=== PATIENT | male | born 1955 | race Caucasian/White ===

== ENCOUNTER 2018-10-19 10:59 | Outpatient (CLI) | payer OTHER, SELFPAY ==
--- NOTE | 2018-10-19 15:12 | DI.RAD_ITS ---
SYMPTOM/DIAGNOSIS: RIGHT HAND PAIN M79.641 RIGHT HAND: Three views. No priors There are mild changes of osteoarthritis in the right hand. The findings are most marked at the DIP joints of the index and middle fingers. No acute fracture or dislocation is seen. No lytic or sclerotic lesion is identified. The soft tissues are grossly unremarkable. IMPRESSION: Mild osteoarthritis of the right hand.
--- NOTE | 2018-10-19 15:12 | DI.RAD_ITS ---
SYMPTOM/DIAGNOSIS: LEFT HAND PAIN M79.642 LEFT HAND: Three views. No priors. There are mild changes of osteoarthritis in the hand. The findings are most marked at the first carpal metacarpal joint and the distal interphalangeal joints of the index and ring fingers. No acute fracture or dislocation, lytic or sclerotic lesion seen. There is a well corticated osseous density at the radial aspect of the base of the proximal phalanx of the left middle finger which likely reflects an old injury. The soft tissues are unremarkable. IMPRESSION: Mild osteoarthritis of the left hand.
--- NOTE | 2018-10-19 15:12 | DI.RAD_ITS ---
SYMPTOM/DIAGNOSIS: RIGHT KNEE PAIN RIGHT KNEE: Three views. No priors. Mild periarticular spurring is seen in the posterior patella. The articular surfaces are otherwise maintained. There is an enthesophyte at the superior aspect of the patella. There is a small joint effusion. There are well corticated osseous densities seen in the infrapatellar region of the joint and these may represent loose bodies. IMPRESSION: 1. Mild degenerative changes of the right knee. 2. Question of loose bodies within the joint space.
== END 2018-10-19 11:19 ==
PROVIDERS: PCP Nurse Practitioner; Visit Provider Nurse Practitioner
DX: M79.641 Pain in right hand (principal); M19.041 Primary osteoarthritis, right hand; M79.642 Pain in left hand; M19.042 Primary osteoarthritis, left hand; M25.561 Pain in right knee; M25.461 Effusion, right knee; M17.11 Unilateral primary osteoarthritis, right knee
CPT/HCPCS: 73562; 73130

== ENCOUNTER 2018-11-20 06:58 | Outpatient (CLI) | payer OTHER, SELFPAY ==
[2018-11-20 07:45] LABS: HCT 42.4 % (40.0-50.0); HGB 14.2 g/dL (13.5-17.5); Mean Corp. HGB Concentration 33.5 g/dL (32.0-36.0); Mean Corpuscular Hemoglobin 29.3 pg (27.0-33.0); Mean Corpuscular Volume 87.4 fL (80-95); Mean Platelet Volume 10.4 fL (8.0-11.0); Platelet Count 200 x1000/uL (130-400); RBC 4.85 m/cumm (4.50-6.00); RBC Distribution Width 12.8 % (11.8-14.1); White Blood Cell Count 5.74 k/cumm (4.4-10.8)
[2018-11-20 08:21] LABS: COMMENT (LAB VIEW ONLY) 173.45 mg/dL; Microalb ug/mg Crea 7.9 ug/mg Cr
[2018-11-20 08:30] LABS: ALT 32 U/L (12-78); AST 15 U/L (15-37); Albumin 4.1 g/dL (3.4-5.0); Alkaline Phosphatase 58 U/L (46-116); Anion Gap 9.1 mmol/L (3-11); BUN 22 mg/dL (7-18); Bilirubin, Total 0.6 mg/dL (0.2-1.0); CO2 27.9 mmol/L (21.0-32.0); CREATININE 1.49 mg/dL (0.70-1.30); Calcium 9.2 mg/dL (8.5-10.1); Chloride 104 mmol/L (98-107); Cholesterol 182 mg/dL (50-200); Estimated GFR 47.95 (mL/min/1.73m2); Glucose 179 mg/dL (70-100); HDL Cholesterol 29 mg/dL (40-60); LDL CHOLESTEROL 94 mg/dL (<100); Potassium 4.5 mmol/L (3.5-5.1); Sodium 141 mmol/L (136-145); TSH (W/Ref FT4) 3.34 uIU/mL (0.358-3.74); Total Protein 7.1 g/dL (6.4-8.2); Triglyceride 315 mg/dL (30-150)
== END 2018-11-20 07:18 ==
PROVIDERS: PCP Nurse Practitioner; Visit Provider Nurse Practitioner
DX: E11.9 Type 2 diabetes mellitus without complications (principal); E78.00 Pure hypercholesterolemia, unspecified; I10 Essential (primary) hypertension; R79.9 Abnormal finding of blood chemistry, unspecified
CPT/HCPCS: 36415; 80053; 80061; 83721; 85027; 82043; 82570; 84443

== ENCOUNTER 2019-01-12 08:44 | Outpatient (CLI) | payer OTHER, SELFPAY ==
[2019-01-12 09:36] LABS: Hemoglobin A1C 8.6 % (4.5-6.2)
[2019-01-12 10:02] LABS: Anion Gap 10.4 mmol/L (3-11); BUN 21 mg/dL (7-18); CO2 25.6 mmol/L (21.0-32.0); CREATININE 1.35 mg/dL (0.70-1.30); Chloride 102 mmol/L (98-107); Estimated GFR 53.73 (mL/min/1.73m2); Glucose 265 mg/dL (70-100); Potassium 4.7 mmol/L (3.5-5.1); Sodium 138 mmol/L (136-145)
[2019-01-12 10:05] LABS: ESR 11 MM/HR (1-20)
[2019-01-13 11:48] LABS: Rheumatoid Factor <8 IU/mL (<12.5)
[2019-01-13 12:28] LABS: Lyme Ab w Rflx to Lyme Confirm Negative
[2019-01-13 14:46] LABS: ANA Interpretation Positive (NEGAT); ANA Titer Pattern 1:160 Speckled
[2019-01-14 07:27] LABS: Vitamin D 25 Total 24.6 ng/ml (30-100)
== END 2019-01-12 09:04 ==
PROVIDERS: PCP Nurse Practitioner; Visit Provider Nurse Practitioner
DX: E11.9 Type 2 diabetes mellitus without complications (principal); I10 Essential (primary) hypertension; M25.50 Pain in unspecified joint; R25.3 Fasciculation; R53.1 Weakness; R53.83 Other fatigue; E11.40 Type 2 diabetes mellitus with diabetic neuropathy, unspecified; R20.2 Paresthesia of skin
CPT/HCPCS: 36415; 80048; 82306; 85652; 86341; 83036; 83735; 86038; 86431; 86618

== ENCOUNTER 2019-01-27 15:27 | Outpatient (CLI) | payer OTHER, SELFPAY ==
[2019-01-29 09:15] LABS: Cyclic Citrullinated Peptide <2.5 U/mL (<5.0)
== END 2019-01-27 15:47 ==
PROVIDERS: PCP Nurse Practitioner; Visit Provider Nurse Practitioner
DX: E11.40 Type 2 diabetes mellitus with diabetic neuropathy, unspecified (principal); E11.9 Type 2 diabetes mellitus without complications
CPT/HCPCS: 36415; 86200; 86337

== ENCOUNTER 2019-06-15 07:46 | Outpatient (CLI) | payer OTHER, SELFPAY ==
[2019-06-15 08:45] LABS: Anion Gap 7.5 mmol/L (3-11); BUN 18 mg/dL (7-18); CO2 27.5 mmol/L (21.0-32.0); CREATININE 1.39 mg/dL (0.70-1.30); Calcium 8.9 mg/dL (8.5-10.1); Chloride 105 mmol/L (98-107); Estimated GFR 51.95 (mL/min/1.73m2); Glucose 191 mg/dL (70-100); Potassium 4.7 mmol/L (3.5-5.1); Sodium 140 mmol/L (136-145)
== END 2019-06-15 08:06 ==
PROVIDERS: PCP Nurse Practitioner; Visit Provider Nurse Practitioner
DX: E11.9 Type 2 diabetes mellitus without complications (principal)
CPT/HCPCS: 36415; 80048

== ENCOUNTER 2020-08-24 05:02 | Outpatient (CLI) | payer OTHER, SELFPAY ==
[2020-08-24 09:08] LABS: ALT 29 U/L (16-63); AST 17 U/L (15-37); Albumin 4.4 g/dL (3.4-5.0); Alkaline Phosphatase 54 U/L (46-116); Anion Gap 7.3 mmol/L (3-11); BUN 20 mg/dL (7-18); Bilirubin, Total 0.6 mg/dL (0.2-1.0); CO2 28.7 mmol/L (21.0-32.0); CREATININE 1.54 mg/dL (0.70-1.30); Calculated LDL 82 mg/dL (<100); Chloride 104 mmol/L (98-107); Cholesterol 177 mg/dL (<200); Glucose 189 mg/dL (74-106); HDL Cholesterol 33 mg/dL (40-60); Potassium 4.5 mmol/L (3.5-5.1); Sodium 140 mmol/L (136-145); Total Protein 7.3 g/dL (6.4-8.2); Triglyceride 314 mg/dL (<150)
== END 2020-08-24 05:22 ==
PROVIDERS: PCP Nurse Practitioner; Visit Provider Nurse Practitioner
DX: E11.9 Type 2 diabetes mellitus without complications (principal); I10 Essential (primary) hypertension; E78.5 Hyperlipidemia, unspecified
CPT/HCPCS: 36415; 80053; 80061

== ENCOUNTER → 2021-07-24 12:00 | Outpatient (CLI) | payer OTHER, SELFPAY ==
--- NOTE | 2021-07-24 | DI.RAD_ITS ---
Exam(s) XR SHOULDER RT COMPLETE 2+V EXAM: XR SHOULDER RT COMPLETE 2+V CLINICAL HISTORY: RT SHOULDER PAIN, M25.511. TECHNIQUE: 2D digital imaging was performed of the right shoulder. Six images were obtained. AP, Y -view and axillary views were obtained. COMPARISON: No exams were available for comparison FINDINGS: BONES: No acute fracture is present. No bony destructive lesion is seen. JOINTS: No dislocation present. Mild degenerative changes are seen at the glenohumeral and acromiocla vicular joint. SOFT TISSUE: Normal. IMPRESSION: Mild degenerative changes of the right shoulder. DATA REPOSITORY: RADIATION DOSE DELIVERED:
== END ==
PROVIDERS: PCP Nurse Practitioner; Visit Provider Nurse Practitioner Family
DX: M25.511 Pain in right shoulder (principal); M19.011 Primary osteoarthritis, right shoulder
CPT/HCPCS: 73030

== ENCOUNTER 2021-08-16 04:17 | Outpatient (CLI) | payer OTHER, SELFPAY | END 2021-08-16 04:18 | disposition home or self-care (01) | LOC: LBO 04:18 | PROVIDERS: PCP Nurse Practitioner; Visit Provider Nurse Practitioner ==

== ENCOUNTER 2021-08-21 02:28 | Outpatient (CLI) | payer OTHER, SELFPAY ==
[2021-08-21 07:53] LABS: HCT 45.7 % (40.0-50.0); MCH 29.1 pg (27.0-33.0); MCHC 32.8 % (32.0-36.0); MCV 88.6 fL (80-95); MPV 9.5 fL (8.0-11.0); Platelet Count 220 10^3/uL (130-400); RBC 5.16 10^6/uL (4.36-5.78); RDW 12.3 % (11.8-14.1); RDW-SD 40.1 fL; WBC 6.94 10^3/uL (4.4-10.8)
[2021-08-21 08:12] LABS: Hemoglobin A1C 7.2 % (<5.7)
[2021-08-21 08:57] LABS: ALT 21 U/L (16-63); AST 11 U/L (15-37); Albumin 4.5 g/dL (3.4-5.0); Alkaline Phosphatase 64 U/L (46-116); Anion Gap 8.6 mmol/L (3-11); BUN 17 mg/dL (7-18); Bilirubin, Total 0.6 mg/dL (0.2-1.0); CO2 28.4 mmol/L (21.0-32.0); CREATININE 1.5 mg/dL (0.70-1.30); Calcium 9.1 mg/dL (8.5-10.1); Calculated LDL 96 mg/dL (<100); Chloride 103 mmol/L (98-107); Cholesterol 180 mg/dL (<200); Estimated GFR 47.27 (mL/min/1.73m2); Glucose 159 mg/dL (74-106); HDL Cholesterol 36 mg/dL (40-60); Potassium 4.3 mmol/L (3.5-5.1); Sodium 140 mmol/L (136-145); Total Protein 7.3 g/dL (6.4-8.2); Triglyceride 240 mg/dL (<150)
== END 2021-08-21 02:29 | disposition home or self-care (01) ==
LOC: LBO 02:28
PROVIDERS: PCP Nurse Practitioner; Visit Provider Nurse Practitioner
DX: E11.9 Type 2 diabetes mellitus without complications (principal); E78.5 Hyperlipidemia, unspecified; I10 Essential (primary) hypertension
CPT/HCPCS: 36415; 80053; 80061; 85027; 83036

== ENCOUNTER 2022-08-14 03:17 | Outpatient (CLI) | payer OTHER, SELFPAY ==
[2022-08-14 07:58] LABS: ALT 21 U/L (16-63); AST 17 U/L (15-37); Albumin 4.1 g/dL (3.4-5.0); Alkaline Phosphatase 58 U/L (46-116); Anion Gap 6.8 mmol/L (3-11); BUN 24 mg/dL (7-18); Bilirubin, Total 0.7 mg/dL (0.2-1.0); CO2 28.2 mmol/L (21.0-32.0); CREATININE 1.5 mg/dL (0.70-1.30); Calcium 9.3 mg/dL (8.5-10.1); Chloride 104 mmol/L (98-107); Estimated GFR 51.67 (mL/min/1.73m2); Glucose 129 mg/dL (74-106); Potassium 4.3 mmol/L (3.5-5.1); Sodium 139 mmol/L (136-145); Total Protein 7.3 g/dL (6.4-8.2)
[2022-08-14 08:23] LABS: Calculated LDL 105 mg/dL (<100); Cholesterol 179 mg/dL (<200); HDL Cholesterol 40 mg/dL (40-60); Triglyceride 172 mg/dL (<150)
== END 2022-08-14 03:18 | disposition home or self-care (01) ==
LOC: LBO 03:17
PROVIDERS: PCP Nurse Practitioner; Visit Provider Nurse Practitioner
DX: E11.9 Type 2 diabetes mellitus without complications (principal); E78.5 Hyperlipidemia, unspecified; I10 Essential (primary) hypertension
CPT/HCPCS: 36415; 80053; 80061

== ENCOUNTER 2022-12-06 01:30 | Outpatient (CLI) | payer OTHER, SELFPAY ==
[2022-12-06 21:07] LABS: PSA, Screening 6.1 ng/mL (<=4.5)
== END 2022-12-06 01:31 | disposition home or self-care (01) ==
LOC: LBO 01:30
PROVIDERS: PCP Nurse Practitioner; Referring Provider Nurse Practitioner; Visit Provider Nurse Practitioner
DX: Z12.5 Encounter for screening for malignant neoplasm of prostate (principal); Z80.42 Family history of malignant neoplasm of prostate
CPT/HCPCS: 36415; 84153

== ENCOUNTER 2023-03-25 04:41 | Outpatient (CLI) | payer OTHER, SELFPAY ==
[2023-03-27 10:36] LABS: Free PSA/PSA Ratio 0.11 ratio
== END 2023-03-25 04:42 | disposition home or self-care (01) ==
LOC: LBO 04:41
PROVIDERS: PCP Nurse Practitioner; Visit Provider Nurse Practitioner Gerontology
DX: R97.20 Elevated prostate specific antigen [PSA] (principal)
CPT/HCPCS: 36415; 84154

== ENCOUNTER 2023-06-24 03:03 | Outpatient (CLI) | payer OTHER, SELFPAY ==
[2023-06-24 19:03] LABS: PSA, Diagnostic 5.7 ng/mL (<=4.5)
== END 2023-06-24 03:04 | disposition home or self-care (01) ==
LOC: LBO 03:03
PROVIDERS: PCP Nurse Practitioner; Visit Provider Nurse Practitioner Gerontology
DX: R97.20 Elevated prostate specific antigen [PSA] (principal)
CPT/HCPCS: 36415; 84153

== ENCOUNTER 2024-01-01 04:20 | Outpatient (CLI) | payer OTHER, SELFPAY ==
[2024-01-01 18:36] LABS: PSA, Diagnostic 5.9 ng/mL (<=4.5)
== END 2024-01-01 04:21 | disposition home or self-care (01) ==
LOC: LBO 04:20
PROVIDERS: PCP Nurse Practitioner; Visit Provider Nurse Practitioner Gerontology
DX: R97.20 Elevated prostate specific antigen [PSA] (principal)
CPT/HCPCS: 36415; 84153

== ENCOUNTER 2024-01-23 01:39 | Outpatient (CLI) | payer OTHER, SELFPAY ==
[2024-01-23 08:05] LABS: ALT 25 U/L (16-63); AST 19 U/L (15-37); Albumin 3.9 g/dL (3.4-5.0); Alkaline Phosphatase 54 U/L (46-116); Anion Gap 9.2 mmol/L (3-11); BUN 21 mg/dL (7-18); Bilirubin, Total 0.55 mg/dL (0.2-1.0); CO2 26.8 mmol/L (21.0-32.0); CREATININE 1.4 mg/dL (0.70-1.30); Calcium 9.2 mg/dL (8.5-10.1); Calculated LDL 74 mg/dL (<100); Chloride 107 mmol/L (98-107); Cholesterol 153 mg/dL (<200); Estimated GFR 55.43 (mL/min/1.73m2); Glucose 112 mg/dL (74-106); HDL Cholesterol 38 mg/dL (40-60); Potassium 4.2 mmol/L (3.5-5.1); Sodium 143 mmol/L (136-145); TSH (W/Ref FT4) 5.77 uIU/mL (0.36-3.74); Total Protein 6.7 g/dL (6.4-8.2); Triglyceride 207 mg/dL (<150); Vitamin B12 211 pg/mL (193-986)
[2024-01-23 08:22] LABS: FREE T4 0.76 ng/dL (0.76-1.46)
== END 2024-01-23 01:40 | disposition home or self-care (01) ==
LOC: LBO 01:39
PROVIDERS: PCP Nurse Practitioner; Referring Provider Nurse Practitioner; Visit Provider Nurse Practitioner
DX: E11.9 Type 2 diabetes mellitus without complications (principal); E78.5 Hyperlipidemia, unspecified; R68.89 Other general symptoms and signs; R41.3 Other amnesia; I10 Essential (primary) hypertension
CPT/HCPCS: 36415; 80053; 80061; 82607; 84439; 84443

== ENCOUNTER 2024-07-12 15:16 | Outpatient (CLI) | payer OTHER, SELFPAY | END 2024-07-12 15:17 | disposition home or self-care (01) | LOC: LBO 15:19 | PROVIDERS: PCP Nurse Practitioner; Visit Provider Nurse Practitioner Gerontology | DX: R97.20 Elevated prostate specific antigen [PSA] (principal) | CPT/HCPCS: 36415; 84153 ==

== ENCOUNTER 2024-09-07 01:05 | Outpatient (CLI) | payer OTHER, SELFPAY ==
[2024-09-07 17:38] LABS: PSA, Diagnostic 6.2 ng/mL (<=4.5)
== END 2024-09-07 01:06 | disposition home or self-care (01) ==
PROVIDERS: PCP Nurse Practitioner; Visit Provider Nurse Practitioner Gerontology
DX: R97.20 Elevated prostate specific antigen [PSA] (principal)
CPT/HCPCS: 36415; 84153

== ENCOUNTER 2024-09-21 14:51 | Outpatient (CLI) | payer OTHER, SELFPAY ==
[2024-09-21 11:38] LABS: CREATININE 1.5 mg/dL (0.70-1.30); Estimated GFR 51.03 (mL/min/1.73m2)
== END 2024-09-21 14:52 | disposition home or self-care (01) ==
LOC: LBO 14:53
PROVIDERS: PCP Nurse Practitioner; Visit Provider Nurse Practitioner Gerontology
DX: R97.20 Elevated prostate specific antigen [PSA] (principal); Z80.42 Family history of malignant neoplasm of prostate
CPT/HCPCS: 36415; 82565

== ENCOUNTER 2024-12-24 14:02 | Outpatient (REF) | payer OTHER, SELFPAY ==
--- NOTE | 2024-12-24 14:00 | PROST_PTH ---
PATIENT: Titus Canela LOC: [facility] U#:[id number] AGE/SX: 69/M ROOM: RE12/24/[address]: Allan Michel MD : 1955 BED: DIS: 12/24/2024 SPEC #: [id number] RECD: 12/24/24 17:46 STATUS: SAMANTHA RETim #: [id number] MANUEL: 12/24/24 14:[address]: Allan Michel DEPT: Surgical Specimen RECD BY: Fannie Monroe ENTERED: 12/24/24 17:47 SP TYPE: PROST OTHR DR: Candie Anaya APRN Tissues: 1 - PROSTATE NEEDLE BIOPSY 2 - PROSTATE NEEDLE BIOPSY 3 - PROSTATE NEEDLE BIOPSY 4 - PROSTATE NEEDLE BIOPSY 5 - PROSTATE NEEDLE BIOPSY 6 - PROSTATE NEEDLE BIOPSY 7 - PROSTATE NEEDLE BIOPSY 8 - PROSTATE NEEDLE BIOPSY 9 - PROSTATE NEEDLE BIOPSY 10 - PROSTATE NEEDLE BIOPSY 11 - PROSTATE NEEDLE BIOPSY 12 - PROSTATE NEEDLE BIOPSY Procedures: GROSS AND MICRO LEVEL 4 IMMUNOPEROXIDASE STAIN Comments: [id number]
== END 2024-12-24 14:03 | disposition home or self-care (01) ==
LOC: LBN 14:02
PROVIDERS: PCP Nurse Practitioner; Visit Provider Urology
DX: N40.0 Benign prostatic hyperplasia without lower urinary tract symptoms (principal)
CPT/HCPCS: 88305; 88361

== ENCOUNTER 2025-05-12 09:24 | Outpatient (CLI) | payer OTHER, SELFPAY ==
[2025-05-12 19:29] LABS: PSA, Diagnostic 9.6 ng/mL (<=4.5)
== END 2025-05-12 09:25 | disposition home or self-care (01) ==
LOC: LBO 09:26
PROVIDERS: PCP Nurse Practitioner; Visit Provider Urology
DX: C61 Malignant neoplasm of prostate (principal)
CPT/HCPCS: 36415; 84153

== ENCOUNTER 2025-06-21 03:35 | Outpatient (CLI) | payer OTHER, SELFPAY ==
[2025-06-21 08:07] LABS: Abs Immature Grans 0.03 10^3/uL (0.0-0.06); HCT 42.1 % (40.0-50.0); HGB 14.6 g/dL (13.5-17.5); Immature Grans % 0.4 %; MCH 29.8 pg (27.0-33.0); MCHC 34.7 % (32.0-36.0); MCV 86 fL (80-95); MPV 9.6 fL (8.0-11.0); Platelet Count 211 10^3/uL (130-400); RBC 4.90 10^6/uL (4.36-5.78); RDW 12.8 % (11.8-14.1); RDW-SD 39.8 fL; WBC 7.28 10^3/uL (4.4-10.8)
[2025-06-21 10:24] LABS: Glucose Negative (Negative)
[2025-06-21 15:39] LABS: TSH 6.50 uIU/mL (0.55-4.78)
[2025-06-21 15:48] LABS: ALT 22 U/L (10-49); AST 22 U/L (<34); Albumin 4.5 g/dL (3.4-5.0); Alkaline Phosphatase 57 U/L (46-116); Anion Gap 8.7 mmol/L (3-11); BUN 18 mg/dL (9-23); Bilirubin, Total 0.60 mg/dL (0.2-1.2); CO2 26.3 mmol/L (20.0-31.0); Calcium 9.4 mg/dL (8.3-10.6); Chloride 107 mmol/L (98-107); Cholesterol 141 mg/dL (<200); Glucose 126 mg/dL (74-106); HDL Cholesterol 34 mg/dL (>40); Potassium 4.1 mmol/L (3.5-5.1); Sodium 142 mmol/L (136-145); Total Protein 6.9 g/dL (5.7-8.2)
== END 2025-06-21 03:36 | disposition home or self-care (01) ==
LOC: LBO 03:35
PROVIDERS: PCP Nurse Practitioner; Referring Provider Family Medicine; Visit Provider Family Medicine
DX: Z13.9 Encounter for screening, unspecified (principal); R53.83 Other fatigue; E87.8 Other disorders of electrolyte and fluid balance, not elsewhere classified
CPT/HCPCS: 36415; 80053; 80061; 81003; 84443; 85025